=== PATIENT | male | born 1955 | race Caucasian/White ===

== ENCOUNTER 2017-12-20 06:15 | Day surgery (SDC) | payer BC ==
--- NOTE | 2017-12-14 21:23 | HP ---
HISTORY AND PHYSICAL: DATE OF PLANNED ADMISSION AND SURGERY: 12/20/17 HISTORY OF PRESENT ILLNESS: Mr. Ortiz is 62-year-old white male who is admitted with a right spermatocele for surgical excision. I have been following Mr. Ortiz for several years because of an element of prostate enlargement and hypogonadism and symptoms of bladder outlet obstruction. He has not been on any medications recently. He noted progressive right scrotal enlargement, which was diagnosed as a right spermatocele. The scrotal ultrasound done about one month prior to his admission showed normal testes and a 6 cm multiseptated right spermatocele. The patient has been symptomatic from the condition, having heaviness, discomfort and interference with his physical activities. PAST MEDICAL HISTORY AND SYSTEM REVIEW: He has bladder outlet obstruction; however, he is managing without any medications. He had past history of hypogonadism and at one point was on clomiphene, but this was discontinued. He has a chronic back pain and is maintained on tramadol, gabapentin, Flexeril and Celebrex. ALLERGIES: He denies any allergies to medications. PHYSICAL EXAMINATION GENERAL: Pleasant and healthy looking white male. VITAL SIGNS: Blood pressure 130/80, pulse of 73. LUNGS: Clear. HEART: Regular and rhythmic. No murmurs. ABDOMEN: Soft. No masses, no tenderness, and no CVA tenderness. He has spinal tenderness to percussion. EXTERNAL GENITALIA: He is circumcised. There are no penile lesions. The left testis is normal. There is a 7 cm cystic mass located above the right testis that is moderately tender, consistent with right spermatocele. No inguinal hernia noted. RECTAL: Shows a moderately enlarged but non-suspicious prostate. IMPRESSION: 1. Symptomatic multiloculated right spermatocele. 2. Chronic back pain, on treatment. PLAN: Right spermatocelectomy. I discussed the operation in detail with the patient. Some of the potential complications including infection and hematoma were discussed. The patient understands that it is expected that he will have persistent scrotal swelling for several weeks after the procedure. All his questions were answered. [id number]/[facility] #: [id number] AILYN
[~2017-12-20 06:15] MED LIST: Buffered Lidocaine 0.9% SYRIN* 5 ML/SYR SYRINGE INTRADERM ONE; Sodium Citrate/Citric Acid* 15 ML UDC PO ONE
[2017-12-20] MEDS ORDERED: Sodium Citrate/Citric Acid* 15 ML UDC ONE (06:19)
[2017-12-20] MEDS ORDERED: Buffered Lidocaine 0.9% SYRIN* 5 ML/SYR SYRINGE ONE (06:19)
[2017-12-20] MEDS ORDERED: ceFAZolin 2 GM in 100 MLS NS (*) BAG IVPB ONE (06:20)
[2017-12-20] MEDS ORDERED: Bupivacaine 0.5% SDV PF* 10-30ML VIAL ONE (07:15)
[2017-12-20] MEDS ORDERED: fentaNYL* 50 MCG/ML 2 ML VIAL (100 MCG VIAL) ONE ×2 (07:37→09:48)
[2017-12-20] MEDS ORDERED: Propofol* 10 MG/ML 20 ML BTL IV PUSH ONE (07:37)
[2017-12-20] MEDS ORDERED: Lidocaine 2% PF * 5 ML VIAL ONE (07:37)
[2017-12-20] MEDS ORDERED: Midazolam* 1 MG/ML 2 ML VIAL (2 MG) ONE (07:37)
[2017-12-20] MEDS ORDERED: Ketorolac INJ* 30 MG/ML 1 ML VIAL IV PRN (07:50)
[2017-12-20] MEDS ORDERED: Naloxone* 0.4 MG/ML 1 ML VIAL IV PRN (07:50)
[2017-12-20] MEDS ORDERED: fentaNYL* 50 MCG/ML 2 ML VIAL (100 MCG VIAL) IV PRN (07:50)
[2017-12-20] MEDS ORDERED: DiMENhydriNATE IV* 50 MG/ML VIAL IV PUSH PRN (07:50)
[2017-12-20] MEDS ORDERED: Ketorolac INJ* 30 MG/ML 1 ML VIAL ONE (09:36)
[2017-12-20] MEDS ORDERED: hydrALAZINE IV* 20 MG/ML VIAL ONE (11:35)
[2017-12-20] MEDS ORDERED: Levalbuterol 0.63MG/3ML NEB* UNIT OF USE INH ONE (11:42)
[2017-12-20 12:02] VITALS: BP 133/93
--- NOTE | 2017-12-21 01:22 | OP ---
CC: Kalpana Payne NP * DATE OF OPERATION: 12/20/17 - SDS DATE OF : 59 SURGEON: Jose E Almeida MD TRANSFORMER BUILDER: REUBEN Harvey ANESTHESIOLOGIST: Dr. Duarte Danielson. ANESTHESIA: General. PRE-OP DIAGNOSIS: Multi-loculated right spermatocele. POST-OP DIAGNOSIS: Multi-loculated right spermatocele. OPERATIVE PROCEDURE: 1. Right scrotal exploration. 2. Right spermatocelectomy. INDICATION FOR PROCEDURE: Mr. Ortiz is a 62-year-old white male who noted progressive right scrotal enlargement associated with scrotal and inguinal discomfort. Physical exam and scrotal ultrasound confirmed the presence of an 8 -cm multiloculated right spermatocele. No other abnormalities were noted. he was tried to be managed conservatively, but he continued to be symptomatic and wanted to proceed with surgical excision. PATHOLOGY: Upon right scrotal exploration, there was no significant hydrocele. There was a multi-loculated right spermatocele measuring about 8 cm in diameter. This spermatocele was located cephalad to the globus major of the epididymis, but was not in immediate proximity to the epididymis. No inguinal hernia was noted. The testis felt normal. No other scrotal abnormalities were noted. DESCRIPTION OF PROCEDURE: After successful general anesthesia, the patient was placed in the supine position and prepped and draped for scrotal exploration. A transverse incision was carried in the anterior Rt hemiscrotum between the testis and the spermatocele. The incision was deepened through the dartos muscle. The testis was delivered through the incision within the tunica vaginalis. The tunica vaginalis was then opened and the testis and the spermatoceles were delivered through the incision. The spermatic cord was identified, held with an Allis clamp, retracted and preserved. The spermatocele was then dissected all the way to its origin adjacent to the epididymis. The dissection was carried without rupturing the epididymis. Care was taken not to interfere with the spermatic cord. The attachment of the spermatocele to the epididymis was divided between clamps and ligated with 4-0 Vicryl. The specimen was delivered intact. Good hemostasis was then achieved. The tunica vaginalis was then everted and approximated to itself covering the spermatic cord to avoid the formation of a reactive hydrocele. At the end of the procedure the testis looked normal with normal vascularity and the spermatic cord was intact. After making sure there was very good hemostasis, the testis was then replaced in the scrotal cavity making sure there was no twisting of the cord. A small [place] drain was then placed in the scrotal cavity and brought out through the lower aspect of the scrotum. The scrotal cavity was irrigated with saline. The scrotal incision was closed using running 4-0 Vicryl for the dartos muscle and interrupted sutures 4-0 chromic for the skin. The Gini drain was transfixed to the skin with a 3-0 Prolene suture. A total of 6 cc of 0.5% Marcaine without epinephrine were used to infiltrate the scrotal incision for postoperative analgesia. The patient tolerated the procedure well and left the operating room in good condition. There was no blood loss. The specimen was multiloculated right spermatocele. All the counts were correct. [id number]/[facility] #: [id number] MTDD
== END 2017-12-20 12:10 | disposition home or self-care (01) ==
LOC: OR 06:15
PROVIDERS: ATTEND Urology
DX: N43.41 Spermatocele of epididymis, single (principal); N40.1 Benign prostatic hyperplasia with lower urinary tract symptoms; N13.8 Other obstructive and reflux uropathy; E29.1 Testicular hypofunction; F33.9 Major depressive disorder, recurrent, unspecified; Z72.0 Tobacco use
CPT/HCPCS: 88304; A9270-GY; J0360; J1885; J2250; J2704; J3010; J7614

== ENCOUNTER 2019-08-25 13:21 | Emergency (ER) | payer SELFPAY ==
--- NOTE | 2019-08-25 14:58 | ED ---
Throat Pain/Nasal Congestion - HPI Summary HPI Summary: This patient is a 64 year old M presenting to [facility] with a chief complaint of left eyelid swelling and erythema since 08/22/19. Patient reports he visited a doctor last week where he was given antihistamine drops which stopped his symptoms but then they came back and is currently worsening. Denies itchiness, drainage from eye (just water/tearing), denies visual disturbance. No fevers or headaches. FMHx cancer. - History of Current Complaint Chief Complaint: EDEyeProblem Time Seen by Provider: 08/25/19 14:23 Hx Obtained From: Patient Onset/Duration: Lasting Days, Still Present Severity: Mild - Allergies/Home Medications Allergies/Adverse Reactions: Allergies Allergy/AdvReac Type Severity Reaction Status Date / Time pregabalin Allergy Headache Verified 12/12/17 12:28 PMH/Surg Hx/FS Hx/Imm Hx Endocrine/Hematology History: Denies: Hx Anticoagulant Therapy, Hx Blood Disorders, Hx Diabetes, Hx Thyroid Disease, Hx Anemia, Hx Unexplained Bleeding Cardiovascular History: Reports: Hx Angina Denies: Hx Coronary Artery Disease, Hx Hypercholesterolemia, Hx Hypertension , Hx Myocardial Infarction, Hx Valvular Heart Disease, Other Cardiovascular Problems/Disorders Respiratory History: Reports: Hx Chronic Obstructive Pulmonary Disease (COPD), Hx Sleep Apnea - NOT DIAGNOSED Denies: Hx Asthma, Other Respiratory Problems/Disorders GI History: Reports: Hx Irritable Bowel - Hx OF Denies: Hx Ulcer, Other GI Disorders History: Reports: Other Problems/Disorders - Hx OF urinary retention Musculoskeletal History: Reports: Hx Arthritis - HIPS/BACK, Hx Back Problems, Other Musculoskeletal History - Back injury 2006, multiple herniated discs Sensory History: Reports: Hx Contacts or Glasses - glasses Denies: Hx Hearing Aid Opthamlomology History: Reports: Hx Contacts or Glasses - glasses Neurological History: Reports: Hx Headaches - pt states from pregabalin, Other Neuro Impairments/Disorders - DORSAL COLUMN STIMULATOR Psychiatric History: Reports: Hx Anxiety - R/T INACTIVITY/PAIN, Hx Depression - Surgical History Surgery Procedure, Year, and Place: lumbar fusion 2009 [place]. revision of lumbar fusion 02/2012 [place]. 1982 2 WISDOM TEETH EXTRACTION /COMPLICATIONS: HAD TR[place] [facility] [place] LEFT [place]. HERNIA REPAIR [facility] [place]. 11/2013 [place]. PLACEMENT DORSAL COLUMN STIMULATOR [facility] [place]. Dec 2013 Permanent placement dorsal column stimulator Hx Anesthesia Reactions: Yes - 1982:DURING SURGERY Infectious Disease History: No Infectious Disease History: Denies: Hx Hepatitis, Hx Human Immunodeficiency Virus (HIV), History Other Infectious Disease, Traveled Outside the [place] in Last 30 Days - Family History Known Family History: Positive: Other - cancer - Social History Alcohol Use: None Alcohol Amount: 1-2 DRINKS Hx Substance Use: No Substance Use Type: Reports: None Substance Use Comment - Amount & Last Used: CBD OIL- HAS MEDICAL CARD Hx Tobacco Use: Yes Smoking Status (MU): Former Smoker Type: Cigarettes Amount Used/How Often: 1PPD 20 YRS Have You Smoked in the Last Year: No Review of Systems Negative: Fever Positive: Erythema, Other - left eye swelling. Negative: Blurred Vision, Drainage All Other Systems Reviewed And Are Negative: Yes Physical Exam - Summary Physical Exam Summary: General: Well appearing, no distress HEENT: no conjunctival injection, EOMI, PERRL, localized edema on the left upper lid w underlying fluctuance. L eyelid erythema Cardiovascular: Skin is well perfused Pulmonary: No respiratory distress, no tachypnea Abdomen: Non-distended Skin: Warm, pink, dry, erythema L eyelid MSK: No edema Psych: Normal affect Neuro: A&Ox3 Triage Information Reviewed: Yes Vital Signs On Initial Exam: Initial Vitals Temp Pulse Resp BP Pulse Ox 98.6 F 75 16 158/102 94 08/25/19 13:23 08/25/19 13:23 08/25/19 13:23 08/25/19 13:23 08/25/19 13:23 Vital Signs Reviewed: Yes Procedures - Sedation Patient Received Moderate/Deep Sedation with Procedure: No Diagnostics - Vital Signs Vital Signs Temp Pulse Resp BP Pulse Ox 08/25/19 13:23 98.6 F 75 16 158/102 94 - Laboratory Lab Statement: Any lab studies that have been ordered have been reviewed, and results considered in the medical decision making process. EENT Course/Dx - Course Course Of Treatment: 64-year-old male with left eye redness and swelling, exam with localized edema and erythema to the upper eyelid, no pain w EOM, suspect secondary to stye with possible overlying blepharitis. Patient advised to use warm compresses, bacitracin to eyelid as needed. Return for worsening pain, fevers, pain with extraocular movements - Diagnoses Provider Diagnoses: Hordeolum, Blepharitis Discharge ED - Sign-Out/Discharge Documenting (check all that apply): Patient Departure - discharge - Discharge Plan Condition: Stable Disposition: HOME Patient Education Materials: Stye (ED), Blepharitis (ED) Referrals: Edgardo Pike, [employer] [Primary Care Provider] - If Needed Additional Instructions: You were seen in the emergency department for eyelid swelling and redness. You likely have a stye. Please apply warm compresses to your eye Because you have irritation of eyelid as well, you can apply bacitracin to eyelid once a day day as needed for one week. Return for worsening pain, swelling, inability to see, pain with eye movement or if you are concerned. - Billing Disposition and Condition Condition: STABLE Disposition: Home - Attestation Statements Document Initiated by Kristian: Yes Documenting Scribe: Audra Mars Provider For Whom Kristian is Documenting (Include Credential): Dr. Houston Gay MD Scribe Attestation: IAudra, scribed for Dr. Houston Gay MD on 08/25/19 at 2343. Scribe Documentation Reviewed: Yes Provider Attestation: The documentation as recorded by the Audra felipe accurately reflects the service I personally performed and the decisions made by me, Dr. Houston Gay MD Status of Scribe Document: Viewed
[2019-08-25 15:10] VITALS: BP 153/102
== END 2019-08-25 15:06 | disposition home or self-care (01) ==
LOC: ED 13:21
DX: H00.014 Hordeolum externum left upper eyelid (principal); H01.004 Unspecified blepharitis left upper eyelid; J44.9 Chronic obstructive pulmonary disease, unspecified; F41.9 Anxiety disorder, unspecified; Z87.891 Personal history of nicotine dependence; Z88.8 Allergy status to other drugs, medicaments and biological substances; Z79.899 Other long term (current) drug therapy
CPT/HCPCS: 99281